=== PATIENT | male | born 1960 | race Caucasian/White ===

== ENCOUNTER → 2017-04-04 | Day surgery (SDC) | payer OTHER ==
[~2017-04-04] VITALS: Ht 170.1 cm; Wt 75.7 kg
[~2017-04-04] MED LIST: CEFADROXIL500 M1 PO; LIPITOR40 MG PO; OMEPRAZOLE D/R20 MG PO
--- NOTE | ~2017-04-04 | PROC NOTE ---
[place], [place] PROCEDURE NOTE NAME: [facility] #: [id number] UNIT #: [id number] ROOM: DOCTOR: HARSH MADERA MD BIRTHDATE: [birth year] DOS: 04/04/2017 PREOPERATIVE DIAGNOSIS: Positive Cologuard test. POSTOPERATIVE DIAGNOSIS: Normal colon. PROCEDURE: Colonoscopy. ENDOSCOPIST: Harsh Madera MD HYDRAULIC PRESS OPERATOR: VAMSI. ANESTHESIA: MAC. INDICATIONS: This is a 57-year-old gentleman with a history of a positive Cologuard test, who is here for a screening colonoscopy. The procedure and its complications were explained to the patient in detail preoperatively. Complications that were discussed included but were not limited to bleeding, missed lesions, colon perforation and prolonged pain. He agreed to proceed. DESCRIPTION OF PROCEDURE: After identifying the patient, the patient was brought to the endoscopy suite and placed in the left lateral position. After IV sedation was administered, a timeout procedure was called. A digital rectal exam was performed, which was within normal limits. An adult colonoscope was now introduced into the anal canal and advanced sequentially into the rectum, sigmoid colon, descending colon, transverse colon and ascending colon, up to the cecum. Upon reaching the cecum, the scope was withdrawn. Total withdrawal time was approximately 6 minutes and 45 seconds. There was no obvious lesion that could be seen in the entirety of the colon. These findings were confirmed on withdrawal of the ____ to the rectum where retroflexion revealed mild internal hemorrhoids. The scope was then withdrawn and the patient was taken to the recovery room. Based on these findings, the patient is recommended another colonoscopy in the next 1-3 years. These findings were discussed with the patient's in the postoperative recovery room. Harsh Madera MD CM:PROCNOTE:PROCEDURE NOTE [id number] HARSH MADERA MD
[2017-04-04 07:37] VITALS: BP 160/101
[2017-04-04 08:20] VITALS: BP 116/70
[2017-04-04 08:35] VITALS: BP 125/78
[2017-04-04 08:50] VITALS: BP 133/82
[2017-04-04 09:05] VITALS: BP 141/88
[2017-04-04 09:18] VITALS: BP 145/85
== END | disposition home or self-care (01) ==
LOC: SDC 04-01 12:30
DX: R19.5 Other fecal abnormalities (principal); K64.8 Other hemorrhoids; K21.9 Gastro-esophageal reflux disease without esophagitis; E78.00 Pure hypercholesterolemia, unspecified

== ENCOUNTER → 2023-08-04 | Outpatient (CLI) | payer OTHER | LOC: CARD 09:02 | PROVIDERS: ATTEND Physician Assistant | DX: I08.0 Rheumatic disorders of both mitral and aortic valves (principal); R01.1 Cardiac murmur, unspecified ==

== ENCOUNTER → 2025-03-09 | Outpatient (CLI) | payer MEDICARE, OTHER | END | disposition home or self-care (01) | LOC: US 08:13 | PROVIDERS: ATTEND Physician Assistant | DX: N28.1 Cyst of kidney, acquired (principal); R31.9 Hematuria, unspecified ==